=== PATIENT | male | born 1990 | race Two or more races ===

== ENCOUNTER 2021-08-12 13:51 | Emergency (ER) | payer MEDICAID, SELFPAY ==
[~2021-08-12] VITALS: Ht 180.3 cm; Wt 91.0 kg
[2021-08-12 17:12] LABS: BASOPHILS % 0.7 % (0.0-2.0); EOSINOPHILS % 0.5 % (0.0-5.0); HEMATOCRIT. 44.1 % (42.0-52.0); HEMOGLOBIN. 14.8 g/dL (14.0-18.0); LYMPHOCYTES % 17.7 % (20.0-50.0); MEAN CORPUSCULAR HEMOGLOBIN 29.9 pg (28.0-32.0); MEAN CORPUSCULAR VOLUME 88.9 fL (80.0-94.0); MEAN PLATELET VOLUME 8.1 fl (7.4-10.4); MONOCYTES % 5.5 % (2.0-8.0); NEUTROPHILS % 75.6 % (40.0-76.0); PLATELET 228 x1000/uL (130-400); RED BLOOD CELL COUNT 4.96 mill/uL (4.7-6.1); RED CELL DISTRIBUTION WIDTH 13.4 % (11.6-14.6)
[2021-08-12 17:20] LABS: CHLORIDE 109 mEq/L (98-107)
[2021-08-12] MEDS ORDERED: IBUPROFEN 600MG TABLET PO ONE (18:15)
[2021-08-12] MEDS ORDERED: IBUP-2029 MT (18:20)
[2021-08-12 18:30] VITALS: BP 133/75
[2021-08-12 19:17] LABS: *AMPHETAMINES SCREEN URINE NEGATIVE (NEGATIVE); *BARBITURATES SCREEN URINE NEGATIVE (NEGATIVE); *BENZODIAZEPINES SCREEN URINE NEGATIVE (NEGATIVE); *COCAINE SCREEN URINE NEGATIVE (NEGATIVE); METHADONE URINE SCREEN NEGATIVE (NEGATIVE); OPIATES URINE SCREEN NEGATIVE (NEGATIVE); PHENCYCLIDINE URINE SCREEN NEGATIVE (NEGATIVE)
[2021-08-12 19:19] LABS: CANNABINOID URINE SCREEN NEGATIVE (NEGATIVE)
== END 2021-08-12 18:45 | disposition home or self-care (01) ==
LOC: ER 13:51 → EDBD 13:51 → ER 18:45
DX: R07.89 Other chest pain (principal)
CPT/HCPCS: 36415; 71045; 80053; 80305; 83880; 84484; 85025; 93005; 99285

== ENCOUNTER 2021-12-13 11:15 | Emergency (ER) | payer MEDICAID, OTHER ==
[~2021-12-13] VITALS: Ht 180.3 cm; Wt 84.0 kg
[~2021-12-13 11:15] MED LIST: IBUP-2029 MT
[2021-12-13 11:16] VITALS: BP 115/92
== END 2021-12-13 13:42 | disposition left against medical advice (07) ==
LOC: ER 11:28
DX: R07.89 Other chest pain (principal); Z53.21 Procedure and treatment not carried out due to patient leaving prior to being seen by health care provider
CPT/HCPCS: 93005; 99283